=== PATIENT | female | born 1970 | race Caucasian/White ===

== ENCOUNTER 2020-07-19 08:53 | Emergency (ER) | payer OTHER ==
--- NOTE | 2020-07-19 09:12 | EDM.PDOC ---
ED HPI GENERAL MEDICAL PROBLEM - General Chief Complaint: Chest Pain Stated Complaint: CHEST PAIN Time Seen by Provider: 07/19/20 09:02 Source of Information: Reports: Patient History Limitations: Reports: No Limitations - History of Present Illness INITIAL COMMENTS - FREE TEXT/NARRATIVE: 50-year-old female with complaints of chest pain which started early this morning. Patient states she went to the gym yesterday, and did some shoulder raises with weights. She states she woke up in the middle of the night with bilateral shoulder discomfort and midsternal chest pressure. She states she had to sit propped up in a chair for the remainder the night. She denies any history of reflux. She denies any radiation to her jaw or neck or down her arms. She denies any blurred vision or dizziness Or palpitations. She states she just had her yearly physical exam with her primary care provider last week and everything checked out normal. Denies a history of any cardiac issues, but she believes her cholesterol was slightly elevated at her visit last week but she is not on medication for this. She only takes thyroid medication. Thyroid levels were also normal at last week's visit with her primary care physician. She denies any cough, shortness of breath, nausea, vomiting, or diarrhea. Onset: Gradual Middle Chest Pain Score (Numeric/FACES): 5 - Related Data Allergies Allergy/AdvReac Type Severity Reaction Status Date / Time doxycycline Allergy Severe Hives Verified 07/19/20 09:04 erythromycin base Allergy Severe Hives Verified 07/19/20 09:04 Home Meds: Home Meds FLUoxetine [PROzac] 0 mg PO DAILY 07/19/20 [History] Levothyroxine Sodium [Synthroid] 175 mcg PO DAILY 07/19/20 [History] Multivitamin 1 each PO DAILY 07/19/20 [History] Past Medical History Psychiatric History: Reports: Depression Endocrine/Metabolic History: Reports: Hypothyroidism, Obesity/BMI 30+ - Past Surgical History Cardiovascular Surgical History: Reports: Varicose Social & Family History - Tobacco Use Tobacco Use Status *Q: Never Tobacco User - Caffeine Use Caffeine Use: Reports: Coffee - Recreational Drug Use Recreational Drug Use: No ED ROS GENERAL - Review of Systems Review Of Systems: See Below Constitutional: Reports: No Symptoms HEENT: Reports: No Symptoms Respiratory: Reports: No Symptoms. Denies: Shortness of Breath, Pleuritic Chest Pain Cardiovascular: Reports: Chest Pain. Denies: Blood Pressure Problem, Dyspnea on Exertion, Edema, Lightheadedness, Orthopnea, Palpitations, Syncope Endocrine: Reports: No Symptoms GI/Abdominal: Reports: No Symptoms. Denies: Diarrhea, Nausea, Vomiting : Reports: No Symptoms Musculoskeletal: Reports: No Symptoms Skin: Reports: No Symptoms Neurological: Reports: No Symptoms. Denies: Dizziness, Headache, Numbness, Syncope, Tingling Psychiatric: Reports: No Symptoms Hematologic/Lymphatic: Reports: No Symptoms Immunologic: Reports: No Symptoms ED EXAM, GENERAL - Physical Exam Exam: See Below Exam Limited By: No Limitations General Appearance: Alert, WD/WN, No Apparent Distress Eye Exam: Bilateral Eye: EOMI, PERRL Ears: Normal External Exam Head: Atraumatic, Normocephalic Neck: Normal Inspection, Supple, Non-Tender Respiratory/Chest: No Respiratory Distress, Lungs Clear, Normal Breath Sounds, No Accessory Muscle Use, Chest Non-Tender Cardiovascular: Normal Peripheral Pulses, Regular Rate, Rhythm, No Edema, No Murmur Peripheral Pulses: 2+: Radial (L), Radial (R), Dorsalis Pedis (L), Dorsalis Pedis (R) GI/Abdominal: Normal Bowel Sounds, Soft, Non-Tender, No Distention (Female) Exam: Deferred Rectal (Female) Exam: Deferred Back Exam: Normal Inspection, Full Range of Motion Extremities: Normal Inspection, Normal Range of Motion, No Pedal Edema, Normal Capillary Refill Neurological: Alert, Oriented, Normal Cognition Psychiatric: Normal Affect, Normal Mood Skin Exam: Warm, Dry, Intact Lymphatic: No Adenopathy #1 Interpretation EKG Date: 07/19/20 Time: 09: Rhythm: NSR Rate (Beats/Min): 71 [place]: Normal P-Wave: Present QRS: Normal ST-T: Normal QT: Normal EKG Interpretation Comments: normal early repolarization in anterior leads per Dr. Franco Course - Vital Signs Last Recorded V/S: Last Vital Signs Temp 97.3 F 07/19/20 09:01 Pulse 71 07/19/20 09:01 Resp 16 07/19/20 09:01 BP 145/92 H 07/19/20 09:01 Pulse Ox 95 07/19/20 09:01 - Orders/Labs/Meds Orders: Active Orders 24 hr Category Date Time Status EKG Documentation Completion [RC] STAT Care 07/19/20 09:10 Active CORONAVIRUS COVID-19 PCR [facility] Stat Lab 07/19/20 10:52 Received Labs: Laboratory Tests 07/19/20 07/19/20 Range/Units 09:20 09:20 WBC 9.62 (3.98-10.04) K/mm3 RBC 4.22 (3.98-5.22) M/mm3 Hgb 12.7 (11.2-15.7) gm/dl Hct 37.7 (34.1-44.9) % MCV 89.3 (79.4-94.8) fl MCH 30.1 (25.6-32.2) pg MCHC 33.7 (32.2-35.5) g/dl RDW Std Deviation 42.1 (36.4-46.3) fL Plt Count 293 (182-369) K/mm3 MPV 8.6 L (9.4-12.3) fl Neut % (Auto) 80.7 H (34.0-71.1) % Lymph % (Auto) 10.2 L (19.3-51.7) % [place] % (Auto) 7.0 (4.7-12.5) % Eos % (Auto) 1.8 (0.7-5.8) Baso % (Auto) 0.2 (0.1-1.2) % Neut # (Auto) 7.77 H (1.56-6.13) K/mm3 Lymph # (Auto) 0.98 L (1.18-3.74) K/mm3 [place] # (Auto) 0.67 H (0.24-0.36) K/mm3 Eos # (Auto) 0.17 (0.04-0.36) K/mm3 Baso # (Auto) 0.02 (0.01-0.08) K/mm3 Sodium 134 L (136-145) mEq/L Potassium 4.2 (3.5-5.1) mEq/L Chloride 101 (98-107) mEq/L Carbon Dioxide 24 (21-32) mEq/L Anion Gap 13.2 (5-15) BUN 11 (7-18) mg/dL Creatinine 0.9 (0.55-1.02) mg/dL Est Cr Clr Drug Dosing 75.44 mL/min Estimated GFR (MDRD) > 60 (>60) mL/min BUN/Creatinine Ratio 12.2 L (14-18) Glucose 111 H (74-106) mg/dL Calcium 8.8 (8.5-10.1) mg/dL Total Bilirubin 0.4 (0.2-1.0) mg/dL AST 9 L (15-37) U/L ALT 29 (14-59) U/L Alkaline Phosphatase 59 (46-116) U/L Troponin I < 0.017 (0.00-0.056) ng/mL Total Protein 7.2 (6.4-8.2) g/dl Albumin 3.6 (3.4-5.0) g/dl Globulin 3.6 gm/dL Albumin/Globulin Ratio 1.0 (1-2) Meds: Medications Discontinued Medications Generic Name Dose Route Start Last Admin Trade Name Freq PRN Reason Stop Dose Admin Ketorolac Tromethamine 30 mg 07/19/20 10:04 07/19/20 11:00 Toradol IVPUSH 07/19/20 10:05 Not Given ONETIME ONE Ketorolac Tromethamine 60 mg 07/19/20 10:42 07/19/20 10:50 Toradol IM 07/19/20 10:43 60 mg ONETIME ONE Administration - Re-Assessments/Exams Free Text/Narrative Re-Assessment/Exam: 07/19/20 10:30 Nothing acute is seen on 2 view of chest x-ray. CBC is unremarkable, sodium 134, troponin less than 0.017. I do not believe this is cardiac as a source. Patient does now report that she was exposed to her mother who was positive for Covid last week, and states she has developed a headache over the course of the last couple of days. I will medicate the patient with Toradol 30 mg IV for the chest discomfort and see if this helps and also do a Covid test. 07/19/20 11:16 Patient states that Toradol has helped to relieve her chest and shoulder discomfort. Will send her home with instructions to quarantine until her Covid test results come back. She will also be instructed to take Aleve or ibuprofen [id number] for the next 48 hours with food. Departure - Departure Time of Disposition: 11:17 Disposition: Home, Self-Care 01 Clinical Impression: Musculoskeletal pain Instructions: Nonspecific Chest Pain, Adult, [id number], Musculoskeletal Pain Referrals: PCP,Not In Area [Primary Care Provider] - Forms: ED Department Discharge Additional Instructions: You are seen in the emergency department today with complaints of chest pain and bilateral shoulder discomfort. I did a chest x-ray and lab work and an EKG which were all unremarkable for any cardiac source. You were given Toradol which is a nonsteroidal anti-inflammatory for the discomfort which did seem to help. You can take either ibuprofen or naproxen [id number] for the next 48 hours with food for discomfort. You were also tested for Covid today due to close contact, you must quarantine until the state contacts you with the results. Please return to the ER if your condition worsens or changes. Up with your primary care provider in the next week or 2 Sepsis Event Note (ED) - Evaluation Sepsis Screening Result: No Definite Risk - Focused Exam Vital Signs: Vital Signs Temp Pulse Resp BP Pulse Ox 07/19/20 09:01 97.3 F 71 16 145/92 H 95 - My Orders Last 24 Hours: My Active Orders 07/19/20 09:10 EKG Documentation Completion [RC] STAT 07/19/20 10:52 CORONAVIRUS COVID-19 PCR PHL Stat - Assessment/Plan Last 24 Hours: My Active Orders 07/19/20 09:10 EKG Documentation Completion [RC] STAT 07/19/20 10:52 CORONAVIRUS COVID-19 PCR PHL Stat
[2020-07-19] MEDS ORDERED: Ketorolac 30 MG/ML SDV IVPUSH ONE (10:04)
--- NOTE | 2020-07-19 10:06 | CR ---
Chest: PA and lateral views of the chest were obtained. Comparison: No prior chest imaging is available. Findings: Heart and mediastinum: Heart size and mediastinum are normal. Lungs: Lungs are clear with no acute parenchymal change. Osseous: No acute osseous finding is seen. Impression: 1. Nothing acute is seen on 2 view chest x-ray. Diagnostic code #1
[2020-07-19] MEDS ORDERED: Ketorolac 60 MG/2 ML SDV IM ONE (10:42)
== END 2020-07-19 11:25 | disposition home or self-care (01) ==
LOC: JD.ED 08:53
DX: R07.89 Other chest pain (principal); F32.9 Major depressive disorder, single episode, unspecified; E03.9 Hypothyroidism, unspecified; E66.9 Obesity, unspecified; Z68.31 Body mass index [BMI] 31.0-31.9, adult; Z88.1 Allergy status to other antibiotic agents; Z20.828 Contact with and (suspected) exposure to other viral communicable diseases
CPT/HCPCS: 36415; 71046; 71046-26; 80053; 84484; 85025; 93005; 93010; 96372; 99284; 99285-25; J1885; U0002

== ENCOUNTER 2023-09-17 12:36 | Emergency (ER) | payer BC, OTHER ==
[2023-09-17 13:12] LABS: BASOPHILS PERCENT AUTO 0.2 % (0.0-1.0); EOSINOPHILS ABSOLUTE AUTO 0.2 K/mm3 (0.0-0.4); EOSINOPHILS PERCENT AUTO 4.3 % (0.0-6.0); HEMATOCRIT 39.4 % (37.0-47.0); HEMOGLOBIN 13.4 gm/dl (12.0-16.0); IMMATURE GRAN ABSOLUTE AUTO 0.02 K/mm3 (0.00-0.05); IMMATURE GRAN PERCENT AUTO 0.4 % (0.0-0.4); LYMPHOCYTES ABSOLUTE AUTO 1.1 K/mm3 (1.0-4.8); LYMPHOCYTES PERCENT AUTO 22.8 % (24.0-44.0); MEAN CORPUSCULAR HEMOGLOBIN 29.9 pg (28.0-32.0); MEAN CORPUSCULAR VOLUME 87.9 fl (83.0-99.0); MEAN PLATELET VOLUME 8.7 fl (9.4-12.3); MONOCYTES ABSOLUTE AUTO 0.3 K/mm3 (0.0-0.8); MONOCYTES PERCENT AUTO 6.3 % (0.0-8.0); NEUTROPHILS ABSOLUTE AUTO 3.3 K/mm3 (1.8-7.7); PLATELET COUNT,PLT 265 K/mm3 (150-400); RED BLOOD CELL COUNT 4.48 M/mm3 (4.10-5.30); WHITE BLOOD CELL COUNT,WBC 4.92 K/mm3 (3.9-11.3)
[2023-09-17] MEDS: Aspirin 81 MG Tab.Chew PO ONE (13:23)
[2023-09-17 13:32] LABS: A/G RATIO 1.1 (1-2); ALBUMIN 4.1 g/dl (3.4-5.0); ANION GAP 14.2 (5-15); BILIRUBIN TOTAL 0.4 mg/dL (0.2-1.0); BUN/CREATININE RATIO 12.5 (14-18); CALCIUM 9.4 mg/dL (8.5-10.1); CREATININE 0.8 mg/dL (0.55-1.02); EST CRCL DRUG DOSING (CG) 84.99 mL/min; POTASSIUM,K 4.2 mEq/L (3.5-5.1); PROTEIN TOTAL,TP 7.8 g/dl (6.4-8.2)
== END 2023-09-17 14:25 | disposition left against medical advice (07) ==
LOC: JD.ED 12:36
DX: R07.9 Chest pain, unspecified (principal); E03.9 Hypothyroidism, unspecified; Z88.1 Allergy status to other antibiotic agents; Z79.899 Other long term (current) drug therapy
CPT/HCPCS: 36415; 71046; 80053; 83690; 83880; 84484; 85025; 93005; 99285; A9270; 93010; 99283